=== PATIENT | female | born 1985 | race Caucasian/White ===

== ENCOUNTER 2016-09-02 19:20 | Emergency (ER) | payer BC, SELFPAY ==
--- NOTE | 2016-09-03 10:14 | ER ---
ADMIT: 09/02/2016 RM/LOC: ER [facility] MR#: [id number] [facility] [id number] [place], [place] [id number] ANA ROSA RADER Jess [address] [place] [address] Emergency Room Report SEX: F AGE: 31 : 1985 DATE: 09/02/2016 ADDENDUM: This patient comes into the ER because she has a migraine headache. It is in the back of her head, going up to the top of her neck. A normal type migraine for her. She is nauseated, has not had any vomiting and she is sensitive to light. She has a normal exam with normal vital signs. She was given Toradol 60 mg IM and Phenergan 50 mg IM, and Ativan 1 mg IM. She is to go home, push fluids, rest in a quiet, dark place and follow up with her primary tomorrow if not better. Please see my T-sheet. RENE Dalton / Narendra Deleon MD / modl JOB #: [id number] CC: Narendra Deleon MD, Attending Physician Mario Nguyen MD, Family Physician
== END 2016-09-02 20:33 | disposition home or self-care (01) ==
LOC: ER 19:20
DX: R51 Headache (principal); F32.9 Major depressive disorder, single episode, unspecified